=== PATIENT | male | born 1990 | race Caucasian/White ===

== ENCOUNTER 2019-08-06 08:33 | Emergency (ER) | payer BC, SELFPAY ==
[2019-08-06 08:35] VITALS: BP 164/101; PULSE 96; RESP 17; TEMP 37.2; O2SAT 95; BMI 39.1
[2019-08-06 08:44] VITALS: BP 181/75; PULSE 89; RESP 18; O2SAT 96
[2019-08-06 08:45] VITALS: O2SAT 96
[2019-08-06 08:47] VITALS: BP 164/84; PULSE 89; RESP 18; TEMP 37.2; O2SAT 95
--- NOTE | 2019-08-06 09:03 | RAD_ITS ---
STUDY: X-RAY CHEST REASON FOR EXAM: Male, 28 years old. Cough, fever, sob TECHNIQUE: Frontal view COMPARISON: None. FINDINGS: The lungs are clear and expanded. There is no demonstrated pleural abnormality. Normal size heart. Normal mediastinum and missael. Normal visualized pulmonary arteries. Normal visualized aortic arch and descending thoracic aorta. Normal visualized thoracic spine. Normal visualized ribs, clavicles, and shoulders. There is no demonstrated abnormality of the visualized soft tissue structures of the upper abdomen. RAD/Chest 1 View (Portable) IMPRESSION: Normal x-ray examination of the chest. Electronically Signed: Daljit Matos DO at 9:48 EDT Tel [phone], Service support ,
--- NOTE | 2019-08-06 09:03 | EKG12_ITS ---
Test Reason : Blood Pressure : / mmHG Vent. Rate : 078 BPM Atrial Rate : 078 BPM P-R Int : 168 ms QRS Dur : 114 ms QT Int : 396 ms P-R-T Axes : 059 -24 -03 degrees QTc Int : 451 ms Normal sinus rhythm Leftward axis Incomplete right bundle branch block Confirmed by LEYDI BROWNE, TRAE ([id number]), food editor TERESA GRAY ([id number]) on 08/09/2019 10:54:46 AM Referred By: MUNA Confirmed By:TRAE HOLLEY MD
[2019-08-06] MEDS: 0.9% Normal Saline 1,000 ML 1000 ML IV (09:17)
--- NOTE | 2019-08-06 09:23 | ED.VISSUMM ---
- ER Visit Summary Date of Service: 08/06/19 Chief Complaint: Cough, fever History of Present Illness: The patient is a 28 M presenting with cough, fever. Patient states he woke up at 3 AM with a cough. He had subjective fever and checked his temperature and it was low. He states later he checked his temperature and it was 101.4. He states he started to have a panic attack and felt short of breath. He had body aches all over. He took Tylenol at 730 this morning. He states his girlfriend was recently diagnosed with strep throat but he has not been around her recently. He was tested for strep throat on Thursday and this was negative. He has no sore throat or painful swallowing. He complains of right ear pain, nonproductive cough, shortness of breath. Denies chest pain. He travels frequently for work. He has a history of exercise-induced asthma. No known exposure to COVID. He is not a smoker. He called telemetry medicine doctor and was advised to come to the ED. Physical Examination: Vitals are stable. Patient is afebrile. Alert no acute distress. HEENT exam no pharyngeal erythema, no exudate. Uvula midline Neck is supple. No meningismus Lungs are clear and equal bilaterally. Heart is regular rate and rhythm. Abdomen is soft nontender nondistended. Extremities are unremarkable. Skin is warm and dry. No focal neurologic deficit. Remainder of exam is unremarkable. Emergency Department Course and Treatment: Patient was given IV fluids. CBC is normal except white count 12.7. Chemistries unremarkable. Chest x-ray shows no acute process. D-dimer is 0.98. Due to elevated d-dimer, CTA of chest was obtained and shows no demonstrated pulmonary embolism or arterial dissection. Technically limited study due to the suboptimal enhancement of the pulmonary arteries. On reevaluation, patient is resting comfortably. He is advised to follow up with his primary care physician. He is given an albuterol inhaler. Advised return the ED for worsening complaints. Disposition: Discharge home Impression: Viral syndrome This note was generated with [employer] dictation software. It may contain incorrect words, spelling, and punctuation that were not noted in review of the chart prior to signing ED Disposition - Plan for ED Patient: Instructions: ED Upper Resp Infec No Abx Tx Referrals: Care Physician,No Primary [NON-STAFF] -
[2019-08-06 09:28] LABS: Absolute Lymphocyte Count 0.78 X10^3/uL (0.83-4.51); Basophil# 0.02 X10^3/uL; Basophil% 0.2 % (0-1); Eosinophil# 0.05 X10^3/uL; Eosinophils% 0.4 % (0-5); Hematocrit 41.9 % (40-54); Hemoglobin 14.1 g/dL (13.0-16.5); Lymphocyte # 0.78 X10^3/ul (4.0); Lymphocyte % 6.1 % (19-41); Mean Corp Hgb Conc 33.7 g/dL (32-36); Mean Corpuscular Hgb 29.7 pg (27.0-32.0); Mean Corpuscular Volume 88.2 fL (80-94); Monocyte# 0.83 X10^3/uL; Monocyte% 6.5 % (0-10); NRBC Flagged by Analyzer 0 % (0-5); Neutrophil # 10.98 X10^3/uL (2.7-7.7); Neutrophil % 86.4 % (47-70); Platelet Count 199 K/mm3 (150-450); RBC Distribution Width SD 38.8 fl (35.1-43.9); Red Blood Count 4.75 M/mm3 (4.6-6.2); White Blood Count 12.7 K/mm3 (4.4-11.0)
[2019-08-06 09:33] LABS: Anion Gap 9 (5-15); BUN 15 mg/dL (7-18); BUN/Creat Ratio 14.6 RATIO (10-20); Calcium,Total 9.1 mg/dL (8.5-10.1); Chloride 102 mmol/L (98-107); Creatinine, Serum 1.03 mg/dL (0.70-1.30); EST Glomerular Filtration Rate 92 mL/min (>60); Est Glom Filt Rate - Afr Amer 112 mL/min (>60); Estimated Creatinine Clearance 126.36 ml/min; Glucose 92 mg/dL (74-106); Potassium 4.1 mmol/L (3.5-5.1); Sodium Level 136 mmol/L (136-145)
[2019-08-06 09:41] LABS: D-Dimer Quantitative (DVT/PE) 0.98 FEU/ug/m (0.27-0.49)
--- NOTE | 2019-08-06 09:42 | CT_ITS ---
STUDY: CTA CHEST REASON FOR EXAM: Male, 28 years old. ELEVATED D-DIMER,COUGH, CHILLS, FEVER, SOB, AND SORE THROAT ALL STARTING AT ABOUT 0300 THIS AM, BENIGN LYMPH NODES REMOVED FROM RT SIDE OF CHEST -- INJECTED TWICE D/T CONTRAST BOLUS-BEST SCAN POSSIBLE RADIATION DOSAGE (If Supplied By Facility): CTDIvol = ( 13.25 ) mGy, DLP = ( 1135.51 ) mGycm TECHNIQUE: The examination was performed with the intravenous administration of IV 100mL Isovue-[id number]. Post-processing of the angiographic images was performed, with multiplanar reformation and 3D reconstruction. Individualized dose optimization techniques were used for this CT. COMPARISON: None. FINDINGS: Suboptimal enhancement of the main pulmonary artery and right and left pulmonary arteries. Suboptimal enhancement of the bilateral peripheral pulmonary arteries. There is no demonstrated pulmonary embolism. Normal thoracic aorta and visualized great vessels. There is no demonstrated aortic dissection. Normal heart and pericardium. Normal mediastinum. Normal hilar regions. Normal visualized trachea and bronchi. The lungs are well expanded. Normal pulmonary parenchyma. Normal pleura. Normal chest wall structures. Normal osseous structures. Normal visualized upper abdomen. CT/CTA Chest W/WO Contrast IMPRESSION: No demonstrated pulmonary embolism or arterial dissection. Technically limited study due to the suboptimal enhancement of the pulmonary arteries. Electronically Signed: Daljit Matos DO at 11:15 EDT Tel [phone], Service support ,
[2019-08-06 11:08] VITALS: PULSE 72
--- NOTE | 2019-08-06 11:39 | ED.DEP ---
ED Disposition - Plan for ED Patient: Instructions: ED Upper Resp Infec No Abx Tx Referrals: Care Physician,No Primary [NON-STAFF] -
[2019-08-06 11:59] VITALS: BP 154/89; PULSE 83; RESP 18; TEMP 37; O2SAT 95
[2019-08-06] MEDS: Contrast Allergy Safety Check IV (12:08)
== END 2019-08-06 12:09 | disposition home or self-care (01) ==
LOC: ED 10:06
PROVIDERS: Emergency Provider Emergency Medicine
DX: B34.9 Viral infection, unspecified (principal); J45.909 Unspecified asthma, uncomplicated
CPT/HCPCS: 71045; 71275; 80048; 85025; 85379; 87635; 93005; 96360; 96361; 99283; G2023; J7030; Q9967; A4216; U0003